=== PATIENT | male | born 1950 | race Caucasian/White ===

== ENCOUNTER 2022-05-14 02:11 | Day surgery (SDC) | payer MEDICARE, SELFPAY ==
[2022-05-11 14:17] VITALS: BMI 31.6
[2022-05-14] VITALS (38 sets, daily range): BP systolic 91–156; BP diastolic 50–96; PULSE 58–82; RESP 11–22; TEMP 36.6; O2SAT 94–99; BMI 30.6
[2022-05-14 07:46] LABS: INR 1.1; Prothrombin Time 13.4 Seconds (11.1-14.7)
[2022-05-14 07:47] LABS: Anion Gap 6 mmol/L (8-16); Blood Urea Nitrogen 16 mg/dL (9-20); Calcium 8.9 mg/dL (8.4-10.2); Carbon Dioxide 29 mmol/L (22-30); Chloride 105 mmol/L (98-107); Estimated CRCL calculation 77 ml/min; Estimated Glomerular Filt Rate > 60; Glucose 127 mg/dL (65-110); Potassium 3.6 mmol/L (3.4-5.0); Sodium 140 mmol/L (137-145)
[2022-05-14 07:48] LABS: Basophils Absolute Auto 0.1 K/mm3 (0.0-0.1); Basophils Percent Auto 0.9 % (0.2-1.2); Eosinophils Absolute Auto 0.1 K/mm3 (0-0.3); Eosinophils Percent Auto 1.8 % (0-4.4); Hematocrit 46.4 % (42.0-52.0); Hemoglobin 15.7 g/dL (14.0-18.0); Immature Granulocyte Absolute 0.03 K/mm3 (0.00-0.031); Immature Granulocyte Percent A 0.6 % (0-0.5); Lymphocytes Absolute Auto 1.46 K/mm3 (0.9-3.2); Lymphocytes Percent Auto 26.9 % (18.3-44.2); Mean Corpuscular HGB Conc 33.8 g/dl (32-36); Mean Corpuscular Hemoglobin 33.5 pg (26-34); Mean Corpuscular Volume 98.9 fl (80-100); Mean Platelet Volume 8.8 fl (7.4-10.4); Monocytes Absolute Auto 0.7 K/mm3 (0.1-0.6); Monocytes Percent Auto 13.1 % (2.6-8.5); Neutrophils Absolute Auto 3.1 K/mm3 (1.3-6.7); Neutrophils Percent Auto 56.7 % (45.5-73.1); Platelet Count Result 156 k/mm3 (150-375); Red Blood Count 4.69 M/mm3 (4.6-6.20); Red Cell Distribution Width 12.9 % (11.5-14.5); White Blood Count 5.4 K/mm3 (4.5-10.0)
--- NOTE | 2022-05-14 08:25 | WPDMODSED ---
Moderate Sedation Note-Pt Data Patient Data Diagnosis: Exertional dyspnea Abnormal nuclear stress test Present Complaint: Dyspnea Procedure to be performed/Plan: Left heart catheterization Allergies Allergy/AdvReac Type Severity Reaction Status Date / Time No Known Allergies Allergy Verified 05/14/22 07:20 Home Medications Medication Instructions Recorded Confirmed Type Adults Multivitamin 1 tablet PO DAILY 05/11/22 05/14/22 History Calcium + Vitamin D 1 cap PO DAILY 05/11/22 05/14/22 History amlodipine 5 mg tablet 5 mg PO DAILY 05/11/22 05/14/22 History atropine 1 % eye drops 3 drp EACH EYE PRN 05/11/22 05/14/22 History losartan 100 mg tablet 100 mg PO DAILY 05/11/22 05/14/22 History milk thistle 150 mg PO DAILY 05/11/22 05/14/22 History pantoprazole 40 mg tablet,delayed 40 mg PO DAILY 05/11/22 05/14/22 History release prednisolone acetate 1 % eye 1 drp RIGHT EYE BID 05/11/22 05/14/22 History drops,suspension gztyggb-nehl-tmqfo-oreg-capryl 500 mg PO DAILY 05/11/22 05/14/22 History Current Medications: Active Medications Sodium Chloride (Normal Saline Iv) 500 mls @ 100 mls/hr IV CONT .Q5H RUPINDER Sedation/Anesthesia: No previous sedation/anesthesia problems (including family history). [facility] Social History Social History Smoking status: Never smoker Drinks per week: 1 Alcohol use details: 1 glass of wine with dinner Living arrangements: with family Additional living arrangements comments: partner Flores Spiritual care concerns: No Mod Sed Physical Exam Physical Exam Pre Procedural Exam: Normal: Neck, Throat, Airway, Lungs, Heart Size, Heart Rate, Heart Rhythm, Neuro Exam and Extremities and Variation: Appearance (Overweight white male no apparent distress) Hours since solid foods: 12 Hours since liquid intake: 12 Mallampati Classification: class II Internal Medicine - PN: Obj Da Vital Signs Vital Signs: Vital Signs - 24 hr 05/14/22 07:33 Temperature 36.6 C Pulse Rate 64 Respiratory Rate 15 Blood Pressure 129/80 Pulse Oximetry 98 Oxygen Delivery Room Air Meds/Results Medications: Active Medications Generic Name Dose Route Start Last Admin Trade Name Freq PRN Reason Stop Dose Admin Sodium Chloride 500 mls @ 100 mls/hr 05/14/22 07:00 Normal Saline Iv IV CONT .Q5H COUNT INCLUDES THE [facility] Labs 05/14/22 07:26 05/14/22 07:26 Labs: Laboratory Results - last 24 hr 05/14/22 05/14/22 05/14/22 07:26 07:26 07:26 WBC 5.4 RBC 4.69 Hgb 15.7 Hct 46.4 MCV 98.9 MCH 33.5 MCHC 33.8 RDW 12.9 Plt Count 156 MPV 8.8 Immature Gran % (Auto) 0.6 H Neut % (Auto) 56.7 Lymph % (Auto) 26.9 [place] % (Auto) 13.1 H Eos % (Auto) 1.8 Baso % (Auto) 0.9 Lymph # (Auto) 1.46 [place] # (Auto) 0.7 H Eos # (Auto) 0.1 Baso # (Auto) 0.1 Abs Immat Gran (auto) 0.03 Absolute Neuts (auto) 3.1 Absolute Nucleated RBC 0.0 Nucleated RBC % 0.0 PT 13.4 INR 1.1 Sodium 140 Potassium 3.6 Chloride 105 Carbon Dioxide 29 Anion Gap 6 L BUN 16 Creatinine 0.90 Estim Creat Clear Calc 77 Estimated GFR > 60 Glucose 127 H Calcium 8.9 ASA Classification/Sedation ASA Classification/Sedation ASA Class: II Emergent: No Risks: Risks, benefits and alternatives explained and patient/family accepted plan for sedation. Patient re-evaluated immediately prior to sedation.
--- NOTE | 2022-05-14 09:39 | ECG_ITS ---
Measurements Intervals [place] Rate: 56 P: 48 [place]: 194 QRS: -6 QRSD: 98 T: 17 QT: 392 QTc: 382 Interpretive Statements SINUS BRADYCARDIA OTHERWISE NORMAL ECG NO PREVIOUS ECG AVAILABLE FOR COMPARISON Electronically Signed On 05-14-2022 12:30:03 [employer] by Mark Guerrier M.D.
--- NOTE | 2022-05-14 09:43 | WPDCARDPROC ---
Cardiac Cath Procedure Note Date of procedure:: 05/14/22 Performing physician:: Blu Gamboa MD Indication:: exertional dyspnea abnormal nuclear stress test hypertension Brief clinical history:: this is a 72-year-old patient reporting the recent onset of exertional shortness of breath. A nuclear stress test was abnormal suggesting some inferior ischemia angiography recommended for this reason. No previous history of CAD. Procedure Procedure performed:: Left ventriculogram coronary angiogram PCI(REYNOLD) to mid RCA Sedation/Medication given:: fentanyl 50 mg Versed 2 mg case start time 8:53 a.m. case end time 9:34 a.m. sedation provided by Alena Munguia RN, trained observer Access site:: right femoral artery Estimated blood loss:: 30 cc Procedure note:: patient was brought to the cardiac catheterization lab the right femoral triangle was prepared and draped in the normal fashion. Was provided with 1% lidocaine infiltrated locally. Using the modified Seldinger technique the femoral artery was punctured and a 5 Swazi vascular sheath was placed. I then used a 5 Swazi angled pigtail catheter to measure left-sided hemodynamics and to perform a left ventriculogram in the CARDENAS projection. After this the 5 Swazi FL4 catheter was advanced to the aortic root for would not satisfactorily engage the left the left main. I engaged the left main using a 5 Swazi FL 3.5 catheter. After this the right coronary was engaged and injected using a standard 5 Swazi JR4 catheter. The cine angiograms were reviewed and PCI of the mid right coronary artery was then recommended and carried out as detailed below. Prior to PCI 5 Swazi sheath was changed over a guidewire for 6 Swazi 25 Cm sheath. The patient was then anticoagulated with bolus and infusion of Angiomax and he received aspirin and 600 mg of clopidogrel prior to PCI. following PCI the sheath was sutured in position the patient was taken to the holding area in stable condition there was no significant groin hematoma upon leaving the medical lab technologist and there were no apparent procedural complications. Findings:: Hemodynamics: Central aortic pressure is 144 over 74 left ventricle 144/5 end-diastolic pressure 22. There was no systolic gradient noted upon pullback across the aortic valve. Left ventricle: The LV is normal in size all segments contract in a vigorous hyperdynamic fashion. The patient did have a run of ventricular tachycardia during the LV injection. Ejection fraction appears to be hyperdynamic at 75%. The left main coronary artery is medium in caliber and nicely patent. The left anterior descending is a moderate caliber artery extending down to around the apex. There is calcification seen in the proximal 3rd of the LAD. There is mild very mild loop little narrowing but no more than 20-30% stenosis seen in the proximal LAD. The circumflex is a moderate caliber artery giving rise to the marginal branches. The circumflex proximally is somewhat calcified but also free of significant disease. After the 2nd obtuse marginal branch there is a 70% stenosis at the origin of the posterior terminal branch of the circumflex. There is BELEN 3 flow in this area. The right coronary artery is medium in caliber and dominant to the posterior circulation. There is 99% stenosis in the midportion of the RCA between the 2nd and 3rd portion of the artery. There is BELEN 2 flow distal to this and there is also ymia-pb-[id number] collateral filling seen from the left coronary on the previous injections. There is pnni-hw-gjgqyctn diffuse disease distal to this high-grade lesion down to just before the bifurcation. Intervention: The right coronary artery was engaged using a 6 Swazi JR4 catheter. I used a 0.014 bioinformatics support specialist 150 guidewire to traverse the very high-grade this stenosis was advanced into the PL system. Following this the lesion was pre-dilated using a 2.5 x 20 mm Neff
[2022-05-14] MEDS: SODIUM CHLORIDE 0.9% IV 1,000 ML 125 ML IV CONT (12:26)
== END 2022-05-14 20:00 | disposition home or self-care (01) ==
PROVIDERS: PCP Family Medicine; Visit Provider Specialist
PROC: 4A023N7 Measurement of Cardiac Sampling and Pressure, Left Heart, Percutaneous Approach (ICD-10-PCS; CPT 93452; principal; 2022-05-14 08:30)
DX: I25.10 Atherosclerotic heart disease of native coronary artery without angina pectoris (principal); R94.39 Abnormal result of other cardiovascular function study; R06.09 Other forms of dyspnea; I10 Essential (primary) hypertension
CPT/HCPCS: 36415; 80048; 85025; 85610; 93005; 93458; A9270; C1725; C1769; C1874; C1887; C1894; C9600; J0583; J1644; J2250; J3010; J7030; J7040

== ENCOUNTER 2022-11-04 15:40 | Observation (INO) | payer MEDICARE, SELFPAY ==
--- NOTE | ~2022-11-04 | CT_ITS ---
EXAMINATION: CT abdomen pelvis w con DATE: 11/04/2022 19:10 INDICATION: Diffuse abdominal pain. Nausea. Fevers. Myalgias. TECHNIQUE: Computed tomography (CT) of the abdomen and pelvis was performed with 100 CC Omnipaque 350 intravenous contrast. Automated exposure control and iterative reconstruction technique were employe d. Exam dose: 1094.82 mGy-cm total exam DLP. COMPARISON: None. FINDINGS: Minimal discoid atelectasis at the lung bases. Normal heart size. No pericardial or pleural effusion. The liver, gallbladder, bile ducts, spleen, pancreas, pancreatic duct, and adrenal glands are unremar kable. Approximately 2.2 x 2.7 cm ill-defined area of diminished enhancement at the posterior lateral aspect of the upper pole the right kidney with adjacent perinephric mild fluid collection and fat stranding . Differential diagnosis includes pyelonephritis. Differential diagnosis includes neoplasm, less like ly infarct. There are 10 mm and 6 mm probable left renal cysts. There is extensive abdominal aortic as well as iliac and femoral artery calcification. No abdominal a ortic aneurysm. No intraperitoneal or retroperitoneal or pelvic mass lesion or adenopathy or ascites. There is prostate enlargement and calcification. Normal appendix. There occasional fluid containing small bowel segments with air-fluid levels but no abnormal dilatati on of small or large bowel to suggest obstruction. Small bilateral fat-containing inguinal hernias. Small fat-containing umbilical hernia Degenerative changes of the thoracic and lumbar spine including multilevel degenerative disc disease of the lumbar spine. IMPRESSION: Nonspecific diminished attenuation of the posterior superior aspect of the right kidney with adjacent mild perinephric fluid and fat stranding. Findings are most suggestive of pyelonephriti s. Less likely considerations in the differential diagnosis include neoplasm, infarct Small probable left renal cysts Reviewed, dictated and finalized at [facility]. Reviewed, dictated and finalized at [facility]. IMPRESSION: Nonspecific diminished attenuation of the posterior superior aspec t of the right kidney with adjacent mild perinephric fluid and fat stranding. F indings are most suggestive of pyelonephritis. Less likely considerations in th e differential diagnosis include neoplasm, infarct Small probable left renal cysts
--- NOTE | ~2022-11-04 | XR_ITS ---
XR chest 2V DATE: 11/04/2022 17:44 INDICATION: Fever, cough, myalgia TECHNIQUE: PA and lateral views COMPARISON: None FINDINGS: Normal heart size. Aortic arch calcification. No hilar or mediastinal enlargement. No pulmonary infiltrate or consolidation, pleural effusion or pulmonary vascular congestion or pneumo thorax is detected. Probable small calcified pulmonary granuloma, lateral left lower lung. Degenerative spurring and mild dextro scoliosis of the thoracic spine. IMPRESSION: No active cardiopulmonary disease Aortic atherosclerosis Reviewed, dictated and finalized at [facility].
[2022-11-04 15:43] VITALS: BP 149/80; PULSE 103; RESP 16; TEMP 38.4; O2SAT 100
[2022-11-04 16:03] LABS: Basophils Percent Auto 0.3 % (0.2-1.2); Hematocrit 41.9 % (42.0-52.0); Hemoglobin 14.4 g/dL (14.0-18.0); Immature Granulocyte Absolute 0.06 K/mm3 (0.00-0.031); Immature Granulocyte Percent A 0.5 % (0-0.5); Lymphocytes Percent Auto 7.3 % (18.3-44.2); Mean Corpuscular HGB Conc 34.4 g/dl (32-36); Mean Corpuscular Hemoglobin 33.3 pg (26-34); Mean Corpuscular Volume 96.8 fl (80-100); Mean Platelet Volume 8.5 fl (7.4-10.4); Monocytes Absolute Auto 1.1 K/mm3 (0.1-0.6); Monocytes Percent Auto 9.9 % (2.6-8.5); Platelet Count Result 108 k/mm3 (150-375); Red Blood Count 4.33 M/mm3 (4.6-6.20); Red Cell Distribution Width 13.2 % (11.5-14.5)
[2022-11-04 16:09] LABS: Appearance Urine Clear (Clear); Bacteria Urine None Seen /hpf; Bilirubin Urine Negative (Negative); Blood Urine 2+ (Negative); Color Urine Yellow (Yellow); Glucose Urine UA Negative (Negative); Ketones Urine Trace mg/dL (Negative); Leukocyte Esterase Ur 1+ LEU/UL (Negative); Nitrate Urine Negative (Negative); Non Pathogenic Casts 0-2; Protein Urine 2+ mg/dL (Negative); Specific Grav Ur 1.021 (1.001-1.035); Squamous Epithelial Cell Urine None seen /hpf (Few); WBC Urine 21-50 /hpf
[2022-11-04 16:10] LABS: INR 1.1; Partial Thromboplastin Time 29.4 SECONDS (22.3-36.8); Prothrombin Time 14.2 Seconds (11.1-14.7)
[2022-11-04 16:17] LABS: Alanine Aminotransferase 27 U/L (6-50); Albumin Level 4.4 g/dL (3.5-5.1); Alkaline Phosphatase 79 U/L (38-126); Anion Gap 8 mmol/L (8-16); Aspartate Amino Transferase 27 U/L (17-59); Bilirubin,Total 1.8 mg/dL (0.2-1.3); Blood Urea Nitrogen 15 mg/dL (9-20); Calcium 8.9 mg/dL (8.4-10.2); Carbon Dioxide 24 mmol/L (22-30); Chloride 103 mmol/L (98-107); Estimated CRCL calculation 87 ml/min; Estimated Glomerular Filt Rate > 60; Glucose 127 mg/dL (65-110); Lipase 42 U/L (23-300); Potassium 3.5 mmol/L (3.4-5.0); Sodium 135 mmol/L (137-145)
[2022-11-04 16:18] LABS: Add Urine Microscopic? YES
[2022-11-04 16:38] LABS: Influenza A QL RT-PCR Negative (Negative); Influenza B QL RT-PCR Negative (Negative); RSV RNA, RT-PCR Negative (Negative); SARS-CoV-2 RNA PCR Negative (Negative)
--- NOTE | 2022-11-04 17:20 | ED.FEVER ---
HPI - Fever General Chief Complaint: Fever Stated Complaint: fever Time Seen by Provider: 11/04/22 17:19 Source: patient Mode of arrival: ambulatory Limitations: no limitations History of Present Illness HPI Narrative: Patient is a 72 y/o male who presents to the ED with c/o fever and abdominal pain. Patient reports last night he suddenly began feeling unwell with diffuse body myalgias, particularly in his hips and lower back. He states he could not get comfortable and had trouble sleeping due to the pain in his body and joints. He also reported having diffuse abdominal pain at that time associated with nausea, but no vomiting. He developed a mild fever last night and a more persistent fever today. He has been taking Tylenol, last took a dose about 4 to 5 hours ago. He states he has been coughing when he feels nauseous, but otherwise denies significant cough. Denies chest pain or shortness of breath. Denies congestion, rhinorrhea, sore throat. Denies diarrhea, constipation. Last bowel movement was yesterday normal. Denies any urinary symptoms. Related Data Home Medications Medication Instructions Recorded Confirmed Adults Multivitamin 1 tablet PO DAILY 05/11/22 11/04/22 Calcium + Vitamin D 1 cap PO DAILY 05/11/22 11/04/22 amlodipine 5 mg tablet 5 mg PO DAILY 05/11/22 11/04/22 losartan 100 mg tablet 100 mg PO DAILY 05/11/22 11/04/22 milk thistle 150 mg PO DAILY 05/11/22 11/04/22 prednisolone acetate 1 % eye 1 drp RIGHT EYE BID 05/11/22 11/04/22 drops,suspension Allergies Allergy/AdvReac Type Severity Reaction Status Date / Time No Known Allergies Allergy Verified 05/14/22 07:20 Review of Systems Review of Systems: CONSTITUTIONAL: See HPI. ENT: Denies rhinorrhea, congestion, sore throat. CARDIOVASCULAR: Denies chest pain. RESPIRATORY: See HPI. GASTROINTESTINAL: See HPI. GENITOURINARY: Denies dysuria or hematuria. SKIN: Denies rash or itching. MUSCULOSKELETAL: See HPI. NEUROLOGIC: Denies headache, numbness, or weakness. All systems reviewed & are unremarkable except as noted in HPI and below PMFSH Past Medical History Medical History Blind right eye Coronary artery disease GERD (gastroesophageal reflux disease) HLD (hyperlipidemia) HTN (hypertension) Retinal detachment, right Surgical History Surgical History History of bilateral inguinal hernia repair History of heart artery stent (04/2022) 99% stenosis between the 2nd and 3rd portions RCA and 70% stenosis in the circumflex posterior branch just after the origin of the obtuse marginal branch of the right coronary artery with a 26 mm Orsiro History of tonsillectomy and adenoidectomy As a child Family History Family History (Updated 11/05/22 @ 00:42 by Arabella Sun DO) Father , at age 80 Pancreatic cancer, Onset Age: 65 COPD (chronic obstructive pulmonary disease) Mother Dementia COPD (chronic obstructive pulmonary disease) Sibling COPD (chronic obstructive pulmonary disease) Chronic kidney disease Social History Social History Social History: 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 He lives with his long-term girlfriend. He drinks 3-4 alcoholic beverages a day. He denies illicit substance use. Code status: Full code Smoking status: Never smoker Drinks per week: 24 Alcohol use details: 3-4 alcoholic beverages a day Substance use: never Substance use type: does not use Lack of Transportation: No Lack of Food: Never True Current Housing: I Have Housing Concerned About Future Housing: No Difficulty Paying Gas/Electric Bills: No Difficulty Paying for Meds: No Currently Unemployed: No Education: Associate Degree Difficulty w/ Childcare or Famil
[2022-11-04 18:15] VITALS: BP 132/62; PULSE 83; RESP 18; O2SAT 98
[2022-11-04] MEDS: ONDANSETRON INJ 4 MG/2 ML VIAL IV PUSH (18:18)
[2022-11-04] MEDS: SODIUM CHLORIDE 0.9% IV 1,000 ML 999 ML IV CONT ×2 (18:18→21:18)
[2022-11-04] MEDS: ACETAMINOPHEN 500 MG TABLET 1000 MG PO (18:18)
[2022-11-04 19:17] VITALS: BP 121/65; PULSE 79; RESP 18; O2SAT 99
[2022-11-04 21:19] VITALS: BP 103/55; PULSE 71; RESP 15; TEMP 37; O2SAT 100
--- NOTE | 2022-11-04 21:37 | PM.IMHP ---
H&P: HPI History of Present Illness Date/Time: 11/04/22 21:37 Chief Complaint: Fever, abdominal pain and body aches Narrative: 72-year-old male with a past medical history of coronary artery disease, GERD, essential hypertension and hyperlipidemia who presented to the ER from home via private vehicle with fever abdominal pain and body aches. Source of information is review of past medical records, ER report and patient report. Patient is a good historian. The patient tells me that he started having symptoms on the night of the . 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 All the sudden he began having generalized body aches and arthralgias. Mostly in his hips and knees. He felt somewhat fatigued. When he got home he started having sweats and chills. He was nauseated and having some dry heaves. He denies any recent ill contacts. He stated that he felt similar to when he had COVID a couple of years ago. He checked his temperature at home and it was as high as 104?. He denies any cough, congestion, headache, visual changes, diarrhea, abdominal pain, recent ill contacts or recent travel. He denies any dysuria or hematuria. He reports that he feels like he has been urinating a lot lately. They denies any increased urgency or dysuria. He has not had any urinary incontinence. He denies flank pain. In the ER CT of the abdomen pelvis was performed which demonstrated a right-sided pyelonephritis. His urine was consistent with UTI. He denies any prior history of UTI. He met sepsis criteria with tachycardia fever and leukocytosis. He received 2 L of IV fluid bolus, 1 g of p.o. Tylenol and Rocephin. His tachycardia improved. He has not had any further nausea or vomiting. Review of Systems Review of Systems: 12 systems were reviewed with pertinent positives and negatives per HPI. Except as documented in the HPI, all other systems were reviewed and are negative. [facility] Past Medical History Medical History (Updated 11/05/22 @ 00:35 by Arabella Sun DO) Blind right eye Coronary artery disease GERD (gastroesophageal reflux disease) HLD (hyperlipidemia) HTN (hypertension) Retinal detachment, right Surgical History Surgical History (Updated 11/05/22 @ 00:30 by Arabella Sun DO) History of bilateral inguinal hernia repair History of heart artery stent (04/2022) 99% stenosis between the 2nd and 3rd portions RCA and 70% stenosis in the circumflex posterior branch just after the origin of the obtuse marginal branch of the right coronary artery with a 26 mm Orsiro History of tonsillectomy and adenoidectomy As a child Family History Family History (Updated 11/05/22 @ 00:42 by Arabella Sun DO) Father , at age 80 Pancreatic cancer, Onset Age: 65 COPD (chronic obstructive pulmonary disease) Mother Dementia COPD (chronic obstructive pulmonary disease) Sibling COPD (chronic obstructive pulmonary disease) Chronic kidney disease Social History Social History (Updated 11/05/22 @ 00:43 by Arabella Sun DO) Social History: 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 He lives with his long-term girlfriend. He drinks 3-4 alcoholic beverages a day. He denies illicit substance use. Code status: Full code Smoking status: Never smoker Drinks per week: 24 Alcohol use details: 3-4 alcoholic beverages a day Substance use: never Substance use type: does not use Lack of Transportation: No Lack of Food: Never True Current Housing: I Have Housing Concerned About Future Housing: No Difficulty Paying Gas/Electric Bills: No Difficulty Paying for Meds: No Currently Unemployed: No Education: Associate Degree Difficulty w/ Childcare or Family Care: No Living arrangements: with family Additional living arrangements comments: partner Flores Gender identity (if verbalized by the patient): Male Sexual Orientation
[2022-11-04 22:00] VITALS: BP 121/60; PULSE 66; RESP 14; TEMP 36.1; O2SAT 100
[2022-11-04] MEDS: SODIUM CHLORIDE 0.9% IV 1,000 ML 100 ML IV CONT (22:32)
[2022-11-04 22:45] VITALS: BMI 31.3
[2022-11-04 23:26] LABS: Lactic Acid Reflex 1.9 mmol/L (0.7-2.0)
[2022-11-05] MEDS: diphenhydrAMINE HCl CAP 25 MG CAPSULE 50 MG PO (00:33)
[2022-11-05 00:37] VITALS: TEMP 37.7
[2022-11-05] MEDS: ACETAMINOPHEN 325 MG TABLET 650 MG PO ×2 (00:37→15:39)
[2022-11-05 06:00] VITALS: BP 152/65; PULSE 95; RESP 16; TEMP 37.2; O2SAT 90
[2022-11-05 06:33] LABS: Basophils Percent Auto 0.4 % (0.2-1.2); Hematocrit 37.6 % (42.0-52.0); Hemoglobin 12.4 g/dL (14.0-18.0); Immature Granulocyte Absolute 0.05 K/mm3 (0.00-0.031); Immature Granulocyte Percent A 0.7 % (0-0.5); Immature Platelet Fraction Pct 1.5 % (0.9-11.2); Lymphocytes Percent Auto 5.8 % (18.3-44.2); Mean Corpuscular Hemoglobin 32.6 pg (26-34); Mean Corpuscular Volume 98.9 fl (80-100); Mean Platelet Volume 8.7 fl (7.4-10.4); Monocytes Absolute Auto 0.6 K/mm3 (0.1-0.6); Monocytes Percent Auto 9.2 % (2.6-8.5); Neutrophils Absolute Auto 5.7 K/mm3 (1.3-6.7); Neutrophils Percent Auto 83.9 % (45.5-73.1); Platelet Count Result 121 k/mm3 (150-375); Red Cell Distribution Width 13.5 % (11.5-14.5); White Blood Count 6.8 K/mm3 (4.5-10.0)
[2022-11-05 06:37] LABS: Anion Gap 5 mmol/L (8-16); Blood Urea Nitrogen 13 mg/dL (9-20); Carbon Dioxide 25 mmol/L (22-30); Chloride 104 mmol/L (98-107); Estimated CRCL calculation 87 ml/min; Estimated Glomerular Filt Rate > 60; Glucose 133 mg/dL (65-110); Potassium 3.4 mmol/L (3.4-5.0); Sodium 134 mmol/L (137-145)
[2022-11-05] MEDS: prednisoLONE ACETATE 1% OPHTH 5 ML 1 DROP RIGHT EYE ×2 (09:14→20:23)
[2022-11-05] MEDS: CLOPIDOGREL BISULFATE 75 MG TABLET PO (09:15)
[2022-11-05] MEDS: amLODIPine BESYLATE 5 MG TABLET PO (09:15)
[2022-11-05 09:16] VITALS: PULSE 84
[2022-11-05] MEDS: ROSUVASTATIN 10 MG TABLET 20 MG PO (09:16)
[2022-11-05] MEDS: METOPROLOL SUCCINATE EXT REL 25 MG TABCR PO (09:16)
[2022-11-05] MEDS: LOSARTAN POTASSIUM 100 MG TABLET PO (09:16)
[2022-11-05] MEDS: ENOXAPARIN 40 MG/0.4 ML SYRINGE SUB-Q (09:17)
[2022-11-05] MEDS: ASPIRIN 81 MG CHEWABLE TABLET PO (09:21)
--- NOTE | 2022-11-05 12:10 | PM.IMPN ---
Progress Note: A&P Assessment and Plan (1) Sepsis: Qualifiers: Sepsis acute organ dysfunction status: without acute organ dysfunction Sepsis type: sepsis due to unspecified organism Qualified Code(s): A41.9 - Sepsis, unspecified organism Code(s): A41.9 - Sepsis, unspecified organism Status: Acute Assessment and Plan: Patient met sepsis criteria on admission with fever (T-max 101.1?), tachycardia and leukocytosis in the setting of right sided pyelonephritis. Blood cultures have been obtained in the ER and are pending. Urine culture has been obtained. Continue empiric antibiotic therapy with Rocephin. Patient received adequate fluid rehydration with 2 L normal saline in the ER with resolution of tachycardia. Remains afebrile today. Leukocytosis resolved, WBC 6.8.Will continue Tylenol and ibuprofen as needed. Monitor urine output closely. (2) Pyelonephritis of right kidney: Code(s): N12 - Tubulo-interstitial nephritis, not specified as acute or chronic Status: Acute Assessment and Plan: CT findings with perinephric fat stranding of right kidney. UA grossly abnormal. Urine cultures pending. Empiric antibiotic therapy as discussed above. Await culture results and tailor accordingly (3) HTN (hypertension): Code(s): I10 - Essential (primary) hypertension Status: Acute Assessment and Plan: Blood pressures are stable at this time. Continue home amlodipine, losartan, metoprolol Subjective Date/time seen: 11/05/22 12:10 Interval history: Date of service: 11/05/2022 Blu Raines is a 72-year-old male with history of hypertension, hyperlipidemia, GERD, CAD, and retinal detachment of the right eye who is seen in follow-up for pyelonephritis. Patient is feeling improved today. Flank pain much improved, currently rated 2/10. He did endorse chills overnight but no fevers and feels better today. He denies back pain. No nausea or vomiting. Denies dysuria, hematuria, urgency, frequency. Tolerating his diet. Does complain of feeling sleepy. No shortness of breath, cough, chest pain. Review of Systems Review of Systems: All systems reviewed & are unremarkable except as noted in HPI and below Exam Narrative: General: Well-nourished, well-appearing 72-year-old male, sitting up in bed, comfortable, NARD Neuro: awake, alert and oriented x4, speech clear, no focal neuro deficits noted HEENMT: normocephalic, atraumatic, EOMI, sclerae anicteric Respiratory: clear to auscultation bilaterally, nonlabored breathing Cardio: regular rate, regular rhythm with S1-S2 Abdomen: nondistended, normoactive bowel sounds, soft, nontender to palpation : No CVA tenderness Extremities: no edema, erythema, or tenderness to palpation Skin: no rashes or lesions, warm and dry Psych: appropriate mood and affect, judgment and insight intact Objective Data Vital Signs Vital Signs: Vital Signs - 24 hr 11/04/22 15:43 11/04/22 18:15 11/04/22 19:17 Temperature 101.1 F H Pulse Rate 103 H 83 79 Respiratory Rate 16 18 18 Blood Pressure 149/80 H 132/62 121/65 Pulse Oximetry 100 98 99 Oxygen Delivery Room Air 11/04/22 21:19 11/05/22 00:37 11/04/22 22:00 Temperature 98.6 F 99.9 F H 96.9 F L Pulse Rate 71 66 Respiratory Rate 15 14 Blood Pressure 103/55 L 121/60 Pulse Oximetry 100 100 Oxygen Delivery 11/05/22 06:00 11/05/22 09:16 Temperature 98.9 F Pulse Rate 95 84 Respiratory Rate 16 Blood Pressure 152/65 H Pulse Oximetry 90 Oxygen Delivery Intake/Output Intake/Output: Intake & Output 11/02/22 11/03/22 11/04/22 11/05/22 23:59 23:59 23:59 23:59 Intake Total 2049 640 Balance 2049 640 Meds/Results Medications: Active Medications Generic Name Dose Route Start Last Admin Trade Name Nevilleq PRN Reason Stop Dose Admin Acetaminophen 650 mg 11/04/22 21:22 11/05/22 00:37 Acetaminophen 325 Mg Tablet PO 650
[2022-11-05 14:00] VITALS: BP 131/52; PULSE 82; RESP 18; TEMP 37.3; O2SAT 93
[2022-11-05] MEDS: SODIUM CHLORIDE 0.9% IV 1,000 ML 100 ML IV CONT (17:54)
--- NOTE | 2022-11-05 18:29 | PC.NURSE ---
Pt is A&O4 male that has reported no pain pertaining to the original diagnosis. Pt had headache that required tylenol to treat. Pt has expressed no needs and reported no nausea or vomiting. Pt ambulates stand by to the bathroom. Pt tolerates well. Will continue to monitor pt.
[2022-11-05 21:45] VITALS: BP 120/61; PULSE 69; RESP 18; TEMP 36.8; O2SAT 95
[2022-11-06] MEDS: SODIUM CHLORIDE 0.9% IV 1,000 ML 100 ML IV CONT (04:49)
[2022-11-06 06:00] VITALS: BP 120/65; PULSE 70; RESP 18; TEMP 37.1; O2SAT 95
[2022-11-06 06:31] LABS: Hematocrit 36.5 % (42.0-52.0); Immature Platelet Fraction Pct 2.2 % (0.9-11.2); Mean Corpuscular HGB Conc 32.9 g/dl (32-36); Mean Corpuscular Hemoglobin 32.7 pg (26-34); Mean Corpuscular Volume 99.5 fl (80-100); Mean Platelet Volume 8.5 fl (7.4-10.4); Platelet Count Result 116 k/mm3 (150-375); Red Blood Count 3.67 M/mm3 (4.6-6.20); Red Cell Distribution Width 13.6 % (11.5-14.5); White Blood Count 5.4 K/mm3 (4.5-10.0)
[2022-11-06 06:59] LABS: Anion Gap 8 mmol/L (8-16); Blood Urea Nitrogen 11 mg/dL (9-20); Calcium 7.7 mg/dL (8.4-10.2); Carbon Dioxide 23 mmol/L (22-30); Chloride 104 mmol/L (98-107); Estimated CRCL calculation 98 ml/min; Estimated Glomerular Filt Rate > 60; Glucose 108 mg/dL (65-110); Potassium 3.2 mmol/L (3.4-5.0); Sodium 135 mmol/L (137-145)
[2022-11-06 08:50] VITALS: PULSE 80
[2022-11-06] MEDS: LOSARTAN POTASSIUM 100 MG TABLET PO (08:50)
[2022-11-06] MEDS: amLODIPine BESYLATE 5 MG TABLET PO (08:50)
[2022-11-06] MEDS: CLOPIDOGREL BISULFATE 75 MG TABLET PO (08:50)
[2022-11-06] MEDS: ASPIRIN 81 MG CHEWABLE TABLET PO (08:50)
[2022-11-06] MEDS: ROSUVASTATIN 10 MG TABLET 20 MG PO (08:50)
[2022-11-06] MEDS: METOPROLOL SUCCINATE EXT REL 25 MG TABCR PO (08:50)
[2022-11-06] MEDS: prednisoLONE ACETATE 1% OPHTH 5 ML 1 DROP RIGHT EYE (08:51)
[2022-11-06] MEDS: ENOXAPARIN 40 MG/0.4 ML SYRINGE SUB-Q (08:51)
[2022-11-06] MEDS: POTASSIUM CHLORIDE 20 MEQ PACKET (FOR LIQUID) PO (09:31)
[2022-11-06 14:00] VITALS: BP 109/61; PULSE 66; RESP 18; TEMP 36.6; O2SAT 97
--- NOTE | 2022-11-06 14:05 | PM.DS ---
DS: Admitting Diagnosis Discharge Date 11/06/2022 Admitting Diagnosis Pyelonephritis DS: Discharge Diagnosis Discharge Diagnosis (1) Sepsis: Qualifiers: Sepsis acute organ dysfunction status: without acute organ dysfunction Sepsis type: sepsis due to unspecified organism Qualified Code(s): A41.9 - Sepsis, unspecified organism Code(s): A41.9 - Sepsis, unspecified organism Status: Acute Assessment and Plan: Patient met sepsis criteria on admission with fever (T-max 101.1?), tachycardia and leukocytosis in the setting of right sided pyelonephritis. Sepsis resolved. Patient remained afebrile >24 hours. Leukocytosis and tachycardia resolved. Blood cultures negative to date, final cultures will be monitored. Patient was adequately rehydrated with IV fluids. Urine output monitored and was appropriate (2) Pyelonephritis of right kidney: Code(s): N12 - Tubulo-interstitial nephritis, not specified as acute or chronic Status: Acute Assessment and Plan: CT findings with perinephric fat stranding of right kidney. UA grossly abnormal. Urine culture with growth of >100k E coli, sensitive to Rocephin which patient received during admission. Will continue p.o. cefdinir as an outpatient to complete a 10 day course of antibiotics. Follow-up with PCP for continued monitoring and to ensure resolution of infection (3) HTN (hypertension): Code(s): I10 - Essential (primary) hypertension Status: Acute Assessment and Plan: Blood pressures remained stable during admission. Continue home amlodipine, losartan, metoprolol (4) Hypokalemia: Code(s): E87.6 - Hypokalemia Status: Acute Assessment and Plan: Potassium slightly decreased at 3.2 and was supplemented, likely due to poor p.o. intake. Anticipate complete resolution as p.o. intake improved with treatment of infection. DS: Summary Hospital Course Hospital Course: Blu Raines is a 72-year-old male with history of hypertension, hyperlipidemia, GERD, CAD, and retinal detachment of the right eye who presented to the ED on 11/04/2022 with complaints of diffuse body aches, worsened flank and. On presentation to the ED, he was mildly tachycardic, temp 101.1?, WBC 11.0 UA grossly abnormal, CXR acute cardiopulmonary disease, CT of the/pelvis with perinephric fat stranding of the right kidney. He was admitted to the hospitalist service for further evaluation and management. Please see above for further details. He was treated with IV Rocephin. Sepsis resolved. Patient will continue p.o. cefdinir as an outpatient to complete a 10 day course based on culture results and will follow-up with his PCP in 1 week for continued monitoring. Patient was feeling significantly improved, back to his baseline state of health. [place] comfortable with plans for discharge home. Discussed worrisome signs and symptoms for which to return and he was educated on his medications. Discharged in hemodynamically stable condition on 11/06/2022. Time Spent with Patient Time attestation: Total time spent providing and/or coordinating discharge services: 45 minutes Time spent: Greater than 30 minutes Exam Narrative: General: Well-nourished, well-appearing 72-year-old male, sitting up in bed, comfortable, NARD Neuro: awake, alert and oriented x4, speech clear, no focal neuro deficits noted HEENMT: normocephalic, atraumatic, EOMI, sclerae anicteric Respiratory: clear to auscultation bilaterally, nonlabored breathing Cardio: regular rate, regular rhythm with S1-S2 Abdomen: nondistended, normoactive bowel sounds, soft, nontender to palpation : No CVA tenderness Extremities: no edema, erythema, or tenderness to palpation Skin: no rashes or lesions, warm and dry Psych: appropriate mood and affect, judgment and insight intact DS: Data Data Completed and Pending Labs on day of discharge: Labs from last 24 hours 0
--- NOTE | 2022-11-06 15:03 | PC.NURSE ---
Pt is A&O4 male. Pt has reported no pain and expresses no needs at this time. Pt given antibiotics early so that pt could discharge today and start PO antibiotics tomorrow. Pt discharged home with . Pt refused wheel chair to car. Pt IV removed intact. Pt educated on discharge orders. Pt was monitored for any changes in status while here.
== END 2022-11-06 15:00 | disposition home or self-care (01) ==
LOC: ANHED 17:31 → ANH3MEDSUR 21:05
PROVIDERS: Emergency Medicine; Admitting Provider Internal Medicine; Emergency Provider Physician Assistant; PCP Family Medicine; Visit Provider Physician Assistant
DX: A41.9 Sepsis, unspecified organism (principal); N12 Tubulo-interstitial nephritis, not specified as acute or chronic; B96.20 Unspecified Escherichia coli [E. coli] as the cause of diseases classified elsewhere; I10 Essential (primary) hypertension; E87.6 Hypokalemia; I25.10 Atherosclerotic heart disease of native coronary artery without angina pectoris; Z95.5 Presence of coronary angioplasty implant and graft; E78.5 Hyperlipidemia, unspecified; Z20.822 Contact with and (suspected) exposure to COVID-19; K21.9 Gastro-esophageal reflux disease without esophagitis; H33.21 Serous retinal detachment, right eye; H54.61 Unqualified visual loss, right eye, normal vision left eye; I70.0 Atherosclerosis of aorta; N28.1 Cyst of kidney, acquired; E80.7 Disorder of bilirubin metabolism, unspecified; E66.9 Obesity, unspecified; Z68.31 Body mass index [BMI] 31.0-31.9, adult; F10.90 Alcohol use, unspecified, uncomplicated; Z79.52 Long term (current) use of systemic steroids; Z79.01 Long term (current) use of anticoagulants; Z79.899 Other long term (current) drug therapy
CPT/HCPCS: 36415; 71046; 74177; 80048; 80053; 81001; 83605; 83690; 85025; 85027; 85055; 85610; 85730; 87040; 87077; 87086; 87186; 87637; 96361; 96365; 96372; 96375; 96376; 99285; A9270; G0378; J0696; J1650; J2405; J7030; Q9967

== ENCOUNTER 2024-02-10 10:11 | Outpatient (CLI) | payer MEDICARE, SELFPAY ==
--- NOTE | ~2024-02-10 | XR_ITS ---
Right Knee Technique: AP, lateral, and sunrise views were obtained. Clinical History: Osteoarthritis Findings: No fracture or dislocation is seen. There is advanced tricompartment osteoarthritis, osteop hyte formation and narrowing of the medial lateral compartments. Soft tissues are unremarkable. No jailene int effusion is seen. Impression: Advanced tricompartmental osteoarthritis. Reviewed, dictated and finalized at location . Impression: Advanced tricompartmental osteoarthritis.
--- NOTE | ~2024-02-10 | XR_ITS ---
Left Knee Technique: AP, lateral, and sunrise views were obtained. Clinical History: Osteoarthritis Findings: No fracture or dislocation is seen. There is advanced tricompartment osteoarthritis, with n arrowing of the medial compartment. Soft tissues are unremarkable. No joint effusion is seen. Impression: Advanced tricompartmental osteoarthritis. Reviewed, dictated and finalized at location M. Impression: Advanced tricompartmental osteoarthritis.
== END 2024-02-10 10:12 | disposition home or self-care (01) ==
LOC: ANHIMG 10:15
PROVIDERS: PCP Family Medicine; Visit Provider Orthopaedic Surgery
DX: M17.0 Bilateral primary osteoarthritis of knee (principal)
CPT/HCPCS: 73564

== ENCOUNTER 2024-02-28 09:30 | Outpatient (CLI) | payer MEDICARE, SELFPAY ==
--- NOTE | 2024-02-28 09:47 | ECG_ITS ---
Test Date: 2024-02-28 10:01:40 Measurements Intervals [place]in Rate: 60 P: 31 ME: 159 QRS: 5 QRSD: 95 T: 31 QT: 372 QTc: 372 Interpretive Statements SINUS RHYTHM LOW QRS VOLTAGE IN PRECORDIAL LEADS [QRS DEFLECTION < 1.0 mV IN CHEST LEADS] WARNING: DATA QUALITY MAY AFFECT INTERPRETATION No previous ECG available for comparison Electronically Signed On 02-28-2024 10:43:03 CDT by Alphonse Baltazar M.D.
[2024-02-28 11:39] LABS: Hemoglobin 14.3 g/dL (14.0-18.0)
[2024-02-28 12:13] LABS: Albumin Level 4.8 g/dL (3.5-5.1); Estimated Glomerular Filt Rate > 60; Glucose 96 mg/dL (65-110)
== END 2024-02-28 09:31 | disposition home or self-care (01) ==
PROVIDERS: PCP Family Medicine; Visit Provider Orthopaedic Surgery
DX: E87.6 Hypokalemia (principal); M17.11 Unilateral primary osteoarthritis, right knee; I10 Essential (primary) hypertension
CPT/HCPCS: 36415; 82040; 82565; 82947; 85014; 85018; 93005

== ENCOUNTER 2024-04-20 09:50 | Outpatient (CLI) | payer MEDICARE, SELFPAY ==
[2024-04-20 11:56] LABS: Urine Cotinine NEGATIVE
[2024-04-20 12:34] LABS: Hemoglobin A1C 5.1 % (<5.7)
[2024-04-20 12:43] LABS: MRSA (PCR) NOT DETECTED (NOT DETECTE)
== END 2024-04-20 09:51 | disposition home or self-care (01) ==
LOC: ANHSURGERY 09:57
PROVIDERS: PCP Family Medicine; Visit Provider Orthopaedic Surgery
DX: Z01.812 Encounter for preprocedural laboratory examination (principal); M17.11 Unilateral primary osteoarthritis, right knee; I10 Essential (primary) hypertension; E78.5 Hyperlipidemia, unspecified
CPT/HCPCS: 80307; 83036; 87641

== ENCOUNTER 2024-05-12 01:38 | Day surgery (SDC) | payer MEDICARE, SELFPAY ==
[2024-04-20 10:02] VITALS: BMI 34.8
[2024-04-20 10:12] VITALS: BP 140/68; PULSE 64; RESP 16; TEMP 36.3; O2SAT 98
--- NOTE | 2024-04-20 10:36 | PC.NURSE ---
Report to the Outpatient Waiting Room, entrance under the green pavilion located off [facility], at time ___6:00AM____ on date ___05/12/24____. Planned Procedure Time: ___7:30AM .? Time changes happen often and if your time is changed the preop area will call you the afternoon before. - You and your visitor will be asked to self-screen and do not enter if you have any COVID symptoms. Please call surgeon if you need to reschedule. - A mask is optional within the hospital at this time. Patients may have clear liquids (water, carbonated beverages, clear teas, apple juice) until 3 hours prior to surgery with a maximum of 20 ounces. - No food from midnight until time of surgery and no smoking. This includes no chewing gum, candy or mints. Take only the following medications with a SIP of water on the morning of surgery: ____AMLODIPINE, METOPROLOL DO NOT STOP ANY OF YOUR OTHER PRESCRIPTION MEDICATIONS PRIOR TO SURGERY EXCEPT THE FOLLOWING Medications to discontinue per physician ____HOLD ASPIRIN & ALL VITAMINS/SUPPLEMENTS 7 DAYS PRE-OP PER DR BRISCOE- LAST DOSE 05/04/24. HOLD XERALTO 5 DAYS PRE-OP PER DR BRISCOE- LAST DOSE 05/06/24. Please no make-up, nail ukrainian, hairspray, perfume, deodorant, or body powder the day of surgery.? No jewelry (including any body piercings) or valuables the day of surgery, leave them at home.? Please take a shower or bath the night before, or the morning of, surgery with an antibacterial soap.? Wear comfortable, loose fitting clothing.? - Jewelry must be removed prior to entering the operating room.? Rings and piercings that are not removed may be cut off. - The hospital will not accept responsibility for valuables.? - Please leave all valuables, including medications, at home the day of surgery. If you are going home after surgery, a licensed xm1 tank driver must drive you home.? - NO public transportation without another adult if you receive anesthesia. - We recommend that an adult stay with you for 24 hours following discharge. - We also recommend that you do not drive, make important decision, drink alcoholic beverages, or take any drugs that were not prescribed by your health care provider for at least 24 hours after your discharge time. Follow any additional instructions given to you from your surgeon. Telephone instructions given to ____PATIENT & SIGNIFICANT OTHER and asked if any additional questions and then verbalized understanding. Patient advised to call surgeon office or pre surgery nurse liaison [phone] if any additional questions.
--- NOTE | 2024-05-11 16:03 | P.PNAN_ITS ---
Anes - Initial Pre Proc Eval Procedure: Operation Date: 05/12/24 07:30 Proposed Procedures p Right Total Knee Arthroplasty - Emilio Feng MD Date/Time: 05/11/24 16:03 Surgeon: Emilio Feng MD Pre Op Diagnosis: primary oa right knee Patient Data Age: 74 Gender: M Height: 1.72 m Weight: 103.1 kg Last Vital Signs Temp 36.3 C L 04/20/24 10:12 Pulse 64 04/20/24 10:12 Resp 16 04/20/24 10:12 BP 140/68 04/20/24 10:12 Pulse Ox 98 04/20/24 10:12 O2 Del Method Room Air 04/20/24 10:12 Allergies Allergy/AdvReac Type Severity Reaction Status Date / Time No Known Allergies Allergy Verified 05/12/24 06:26 Home Medications ?Medication ?Instructions ?Recorded ?Confirmed ?Type amlodipine 5 mg tablet 5 mg PO QAM 05/11/22 05/12/24 History losartan 100 mg tablet 100 mg PO HS 05/11/22 04/20/24 History metoprolol succinate 25 mg 25 mg PO QAM 30 days #30 tabs 05/14/22 05/12/24 Rx tablet,extended release 24 hr (Toprol XL) rosuvastatin 10 mg tablet (Crestor) 20 mg (2 x 10 mg) PO DAILY 30 days 05/14/22 04/20/24 Rx #60 tabs rivaroxaban 2.5 mg tablet (Xarelto) 2.5 mg PO BID 12/30/23 05/12/24 History acetaminophen 500 mg tablet 1,000 mg PO Q6H PRN Pain 04/20/24 04/20/24 History aspirin 81 mg tablet,delayed 81 mg PO DAILY 04/20/24 05/12/24 History release calcium carb-ergocalciferol (vit 1 tablet PO DAILY 04/20/24 05/12/24 History D2) 600 mg calcium-200 unit tablet multivitamin 1 tablet PO DAILY 04/20/24 05/12/24 History vit A 7,160 unit-vit C 113 mg-vit 1 tablet PO DAILY 04/20/24 05/12/24 History E 100 [id number] tablet Patient hx anesthesia problems: none Family hx anesthesia problems: none Results Review: All pre-operative results and documents have been reviewed as part of the pre- operative evaluation. [facility] Past Medical History Medical History (Updated 05/11/24 @ 16:04 by Wellington Ambrosio DO) PVD (peripheral vascular disease) Retinal detachment, right Blind right eye Coronary artery disease HLD (hyperlipidemia) HTN (hypertension) GERD (gastroesophageal reflux disease) Surgical History Surgical History History of tonsillectomy and adenoidectomy As a child History of bilateral inguinal hernia repair History of heart artery stent (04/2022) 99% stenosis between the 2nd and 3rd portions RCA and 70% stenosis in the circumflex posterior branch just after the origin of the obtuse marginal branch of the right coronary artery with a 26 mm Orsiro Family History Family History Father , at age 80 Pancreatic cancer, Onset Age: 65 COPD (chronic obstructive pulmonary disease) Mother Dementia COPD (chronic obstructive pulmonary disease) Sibling COPD (chronic obstructive pulmonary disease) Chronic kidney disease Social History Social History Social History: 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 He lives with his long-term girlfriend. He drinks 3-4 alcoholic beverages a day. He denies illicit substance use. Code status: Full code Smoking status: Never smoker Alcohol intake: current Drinks per week: 24 Alcohol use details: 3-4 alcoholic beverages a day Substance use: never Substance use type: does not use Do You Feel Safe in your Home?: Yes Lack of Transportation: No Lack of Food: Never True Current Housing: I Have Housing Concerned About Future Housing: No Difficulty Paying Gas/Electric Bills: No Difficulty Paying for Meds: No Currently Unemployed: No Education: Decline to Answer Difficulty w/ Childcare or Family Care: No Living arrangements: with family Additional living arrangements comments: partner Flores Gender identity (if verbalized by the patient): Male Sexual Orientation (if Verbalized by the Patient): Straight or Heterosexual Spiritual care concerns: No Anes - Eval Final PreProcedure Day of Procedure 05/11/24 16:03 Patient weight: obese Heart: regular rate and rhythm Lungs: clear to auscultation Airway: Mallampati scale class II Neurological: alert and oriented Last oral intake: >/= 8 hours ASA classification: III Emergent: no Anesthetic plan: proceed Anesthesia type and monitoring: general LMA and standard monitoring Results Review: All pre-operative results and documents have been reviewed as part of the pre- operative evaluation. Informed Consent: The patient's anesthetic plan and its attendant risks and benefits were discussed with the patient/family/POA. Questions were solicited and answers provided to the satisfaction of the patient/family/POA.
[2024-05-12] VITALS (14 sets, daily range): BP systolic 117–148; BP diastolic 64–87; PULSE 58–89; RESP 11–18; TEMP 36.2–37.2; O2SAT 94–98; BMI 34.2
--- NOTE | ~2024-05-12 | XR_ITS ---
EXAMINATION: [id number] DATE: 05/12/2024 10:38 INDICATION: Postoperative evaluation following right total knee arthroplasty. TECHNIQUE: Anteroposterior and lateral views of the right knee were obtained. COMPARISON: None. FINDINGS: Right total knee arthroplasty with patellar resurfacing appears well seated and in near anatomic alig nment. No fractures identified. Expected postoperative subcutaneous and intra-articular gas. IMPRESSION: 1. Right total knee arthroplasty, negative for postoperative purposes. Reviewed, dictated and finalized at location A. MECHANIC
[2024-05-12] MEDS: LACTATED RINGERS 1,000 ML 30 ML IV CONT ×2 (06:40→10:12)
[2024-05-12] MEDS: ACETAMINOPHEN 500 MG TABLET 1000 MG PO (07:04)
[2024-05-12] MEDS: TRANEXAMIC ACID 1,000MG/ISO100 1,000 MG/100 ML BAG 200 MG IVPB (07:05)
--- NOTE | 2024-05-12 07:13 | WPDHPUPDATE1 ---
History and Physical Update Update Date/Time: 05/12/24 07:13 History and Physical has been reviewed, including an updated exam of the patient. There are NO changes in the patient's condition. Risks, benefits, and alternatives have been discussed and questions answered. Patient agrees to proceed with procedure.
[2024-05-12] MEDS: ceFAZolin 2 GM/D5W 50 ML 2 GM/50 ML BAG IVPB ×3 (07:28→23:39)
[2024-05-12] MEDS: SODIUM CHLORIDE 0.9% IV 37.7 ML, MORPHINE SULFATE INJ (*CRX) 2 MG, ROPivacaine HCL 1% 2... INFILTRATE (08:03)
[2024-05-12] MEDS: TRANEXAMIC ACID 1,000 MG/10 ML AMPUL 1000 MG IV PUSH (09:57)
[2024-05-12] MEDS: fentaNYL CITRATE INJ (*CRX) 100 MCG/2 ML VIAL 25 MCG IV PUSH ×6 (10:22→10:53)
--- NOTE | 2024-05-12 10:51 | P.OP_ITS ---
Procedure Note - Detailed Date of Procedure 05/12/24 Pre-op Diagnosis Right knee degenerative arthritis. Post-op Diagnosis Same Procedure Performed Calipered, kinematically aligned total knee replacement right knee. Surgeon Emilio Feng MD Head Of Visual Merchandising Fátima Harper RN-AYALA Anesthesia General Findings According to the calipered kinematic alignment principles, the knee was balanced by the following verification checks incorporating 6 caliper measurements, using an insert goniometer to select the insert thickness, and adjusting the tibial resection following the kinematic alignment algorithm (see figure 160.10 published in [employer] [facility] chapter on kinematic alignment total knee art hroplasty.) The steps verified the femoral and tibial components were kinematically aligned coincident to the patient's pre arthritic joint lines, which closely restored the mohegan tibial compartment forces and ligament laxities without ligament release. The [employer] knee, designed specifically for kinematic alignment, fit optimally. Severe synovitis noted. Partial synovectomy performed. Marked medial bone erosion. No ligament releases performed. Final varus angulation of 7? matched preoperative pre arthritic anatomy. The record of verification checks were documented and scanned into the chart. Distal Femoral Resection: Distal Medial 6 mm(cartilage worn), Distal Lateral 6 mm(cartilage worn) Target thickness of 8mm Unworn, 6mm Worn (No Cartilage). Posterior Femoral Resection: Posterior Medial 5 mm(cartilage worn), Posterior Lateral 7 mm. Target thickness of 7mm Unworn, 5mm Worn (No Cartilage). Description of Procedure General anesthesia was administered. A well-padded tourniquet was placed high on the thigh. The limb was prepped and draped in the usual sterile fashion. The limb was exsanguinated and the tourniquet inflated to 300 mmHg. A longitudinal incision was created over the midline of the knee. Sharp dissection was taken through subcutaneous tissues. Electrocautery was used for hemostasis. A trivector approach to the knee joint was performed. The ACL, anterior horns of the menisci, and fat pad were excised, and a subperiosteal dissection was carried along the posterior medial border of the tibia. The thickness of the mohegan patella was measured with a caliper. The patella was resected using the oscillating saw. The best fitting anatomic patella button was selected. The fixation holes were drilled. When the patella and patella buttons combined thickness was thicker than the mohegan patella, the patella was recut. Starting midway between the top of the notch in the anterior femoral cortex, I drilled a 9 mm diameter hole parallel to the anterior cortex to minimize flexion of the femoral component and promote patella tracking. I verified the existence of a 5-10 mm bone bridge between the posterior aspect of the hole and the anterior limit of the intercondylar notch. An intraosseous positioning armando was inserted 10 cm into the femur perpendicular to the distal joint line and parall el to the anterior cortex. I used a distal femoral referencing guide that compensated 2 mm when the cartilage was worn on the distal medial femoral condyle, and 2 mm when the cartilage was worn on the distal lateral femoral condyle. The basis for setting the distal and posterior femoral resection guide is knowing that the varus and valgus grade II to IV Kellegren-Louie osteoarthritic knees have negligible bone wear at 0? and 90? and that the mean full-thickness cartilage wear approximates 2 mm. I measured the thickness of distal femoral resections with a caliper to +/- 0.5 mm. The thickness of each resection was adjusted to match the thickness of the respective condyle of the femoral component within 0.5 mm of target after compensating for cartilage wear and kerf. When the distal r esection was 1-2 mm too thin, a recut guide was used to adjust the cut. When the distal resection was too thick, a 1 or 2 mm thick washer was fixed to the back of the 4-in-1 chamfer block to rajinder a corrective gap between the femoral component and distal femur. I set posterior femoral referencing guide at 0? orientation to position the pin holes for the 4 in 1 chamfer block. The tessa wing measured the width of the distal femoral resection and selected the size of the 4 in 1 chamfer block and femoral component. The AP sizer confirmed the size. I measured the thickness of the posterior femoral resections with a caliper before making the anterior and chamfer cuts. I adjusted the thicknesses of each resection to match the thickness of the respective condyle of the femoral component within +/-0.5 mm after compensating for cartilage wear and curve. When a posterior resection femoral resection was 1-2 mm too thick or thin a corrective correction was made by shifting or rotating the 4 in 1 chamfer block as needed. The chamfer block was secured in the correct position with compression screws. The anterior and chamfer femoral resections were made. These caliper measurements and rob ections verified that the femoral component was set coincident with the patient's pre-arthritic distal and posterior femoral joint lines. I removed all the medial and lateral femoral and tibial osteophytes to restore the pre arthritic length of the medial and lateral collateral ligaments. I olu AP lines along the major axis of the lateral tibial plateau in between the tibial spines which identified the flexion extension plane of the knee. A conventional extramedullary tibial resection guide was applied to the ankle. An tessa wing was placed medially in the saw slot. The varus valgus angle of the tibial resection guide was adjusted until the guide paralleled the proximal tibial articular surface after compensating for cartilage and bone wear. The slope of flexion extension angle of the tibial resection guide was adjusted until the tessa wing paralleled the slope of the medial tibia after compensating for wear. The AP axis of the tibial resection guide was adjusted parallel to th e two lines. The proximal tibia was resected, partially releasing the insertion of the posterior cruciate ligament. The thickness of the medial and lateral lateral tibial condyle was measured at the base of the tibial spines. I visually verified the slope of the medial border of the resection was parallel to the patient's pre arthritic slope after compensating for cartilage and bone wear. I removed the remnants of the posterior horns of the menisci and posterior osteophytes and cauterized the inferior lateral genicular vessels. The Aquamantys bipolar device was also used to for additional hemostasis. When the knee had a preoperative flexion contracture of 20? or more I teased the capsule off the posterior femur with a curved 3 quarter-inch osteotome. I administered the posterior femoral periosteal injection by delivering 10 cc using a 20 gauge spinal needle at the most medial and 10 cc at the most lateral femoral spur surface which reduced the risk of injury to the posterior neurovascular structures. I followed 6 options in a decision tree to fine tune the varus valgus and posterior slope orientation of the tibial component to restore the patient's pre arthritic tibial joint line and limb alignment. First, I adjusted the varus- valgus orientation of the proximal tibia resection working in 1 degree to 2 degree increments until there was negligible medial and lateral lift off of the distal femoral and proximal tibial resection from the spacer block during a varus valgus laxity assessment in extension. I selected the largest anatomic shape trial tibial base plate that fit within the cortical boundary of the proximal tibial resection. The base plate was best fit parallel to the cortical boundary which set the Internal-external orientation of the anterior to posterior and medial to lateral positions. The best fit method set the AP axis of the tibial base plate and insert parallel to the flexion extension plane of the pre arthritic knee. I pinned the trial t ibial base plate, prepared the cruciate slot, and fixed the base plate to the tibia with the cruciate stem. I inserted the trial femoral component. The knee was placed in full extension. Varus valgus laxity is of the knee with trial components were assessed. When asymmetric laxity was observed a 1-2 degree varus or valgus recut guide was used to fine tune the tibial resection until the laxity was 1 degree or less in full extension like the mohegan knee. The following steps determined the optimal insert thickness within +/-1 mm. First I inserted an insert goniometer that matched the thickness of the spacer block. I reduced the patella and then with the knee in maximum extension, I verified the knee hyperextended a few degrees and had negligible varus valgus laxity, like the pre arthritic knee. He required a release of the posterior lateral capsule. Next, I measured the external tibial orientation which was the angle the insert goniometer intersected the sagittal line on the medial condyle of the femoral trial component. Then with the knee in 15-30 degrees flexion I verified a 3-4 mm gap in the lateral compartment and no gap in the medial compartment during a 2nd varus valgus laxity test. Next, I placed the knee in 90? of flexion and the foot resting on the operating table and measured the internal tibial orientation. I repeated the steps until I identified the insert thickness that provided the highest external tibia orientation in extension and the highest internal tibial orientation at 90? flexion without anterior lift-off of the insert from the tibial base plate. The insert with this thickness was implanted. I applied a posterior drawer test with the tibia distracted by gravity and verified no posterior subluxation of the tibia relative to the femur. The patella remained centered on the trochlea and tracked well throughout the entire arc of flexion and extension. I used pulse lavage to clean the bony surfaces of debris and dried bone. I cemented the tibial, femoral, and patellar components using 1 bag of methylmethacrylate with Gentamycin, then rechecked the stability at full extension, 15-30 degrees, and 90? flexion and verified buddhist of the entire arc of motion of the knee. The circulating nurse confirmed the sponge and needle counts were correct. I used pulse lavage to rinse the joint and wound. The extensor mechanism was closed with interrupted #1 Vicryl suture and #1 running Stratafix suture. The subcutaneous layer was closed with interrupted #1 Vicryl suture followed by 2-0 Stratafix and 3-0 Stratafix. Steri-Strips placed on the skin. Silver impregnated occlusive dressing applied to the wound. A light gauze wrap and Rickey bandage were placed. The patient was transferred to the recovery room in stable condition. There were no complications. Implants Medacta GMK spheriKA Femoral component SpheriKA size 4+, tibial component size 4, vitamin-E flex insert, thickness 12mm, Anatomic patella implant size 3. Estimated Blood Loss 50 Tourniquet Time Total Tourniquet Time: 93 Drains No Pathology None sent Complications No immediate complications Condition Stable Disposition PACU [facility] Billing Surgery - Charge Forward: Surgery Billing
--- NOTE | 2024-05-12 12:12 | ADMGEN ---
This patient, Blu Raines, was admitted to [facility] Surg Room 328-01. Patient/family oriented to hospital policies and general routines including ID bracelet, bed and alarms, visiting hours, pain management, procedures, bathroom and other care routines, personal items, smoking policy, room service/diet, and visiting hours. Information on how to activate the Rapid Response Team has been discussed. Patient/Family are encouraged to report perceived risks to care and to ask questions if they do not understand what they are told or what they should do.
[2024-05-12] MEDS: ACETAMINOPHEN 325 MG TABLET 650 MG PO ×2 (12:19→18:08)
[2024-05-12] MEDS: SODIUM CHLORIDE 0.9% IV 1,000 ML 125 ML IV CONT (12:19)
[2024-05-12] MEDS: oxyCODONE/ACETAMINOPHEN (*CRX) 5-325 MG TABLET 1 TABLET PO ×2 (13:47→20:19)
[2024-05-12] MEDS: SENNA/DOCUSATE SODIUM TABLET 2 TAB PO (16:17)
[2024-05-12] MEDS: predniSONE 5 MG TABLET PO (16:17)
[2024-05-12] MEDS: LOSARTAN POTASSIUM 100 MG TABLET PO (20:19)
[2024-05-12] MEDS: FAMOTIDINE 20 MG TABLET PO (20:19)
[2024-05-12] MEDS: CYCLOBENZAPRINE HCL 10 MG TABLET PO (23:39)
[2024-05-13] MEDS: ACETAMINOPHEN 325 MG TABLET 650 MG PO ×2 (00:06→06:42)
[2024-05-13] MEDS: oxyCODONE/ACETAMINOPHEN (*CRX) 5-325 MG TABLET 1 TABLET PO (02:03)
[2024-05-13 04:45] VITALS: BP 133/69; PULSE 56; RESP 16; TEMP 36.6; O2SAT 97
[2024-05-13] MEDS: ceFAZolin 2 GM/D5W 50 ML 2 GM/50 ML BAG IVPB (06:42)
[2024-05-13 07:14] LABS: Basophils Percent Auto 0.1 % (0.2-1.2); Hematocrit 37.6 % (42.0-52.0); Hemoglobin 12.3 g/dL (14.0-18.0); Immature Granulocyte Absolute 0.04 K/mm3 (0.00-0.031); Immature Granulocyte Percent A 0.5 % (0-0.5); Lymphocytes Percent Auto 10.2 % (18.3-44.2); Mean Corpuscular HGB Conc 32.7 g/dl (32-36); Mean Corpuscular Hemoglobin 34.1 pg (26-34); Mean Corpuscular Volume 104.2 fl (80-100); Mean Platelet Volume 9.1 fl (7.4-10.4); Monocytes Absolute Auto 1.3 K/mm3 (0.1-0.6); Monocytes Percent Auto 14.6 % (2.6-8.5); Neutrophils Absolute Auto 6.6 K/mm3 (1.3-6.7); Neutrophils Percent Auto 74.6 % (45.5-73.1); Platelet Count Result 122 k/mm3 (150-375); Red Blood Count 3.61 M/mm3 (4.6-6.20); Red Cell Distribution Width 12.5 % (11.5-14.5); White Blood Count 8.8 K/mm3 (4.5-10.0)
[2024-05-13 07:20] LABS: Anion Gap 1 mmol/L (4-12); Blood Urea Nitrogen 13 mg/dL (9-20); Calcium 8.8 mg/dL (8.4-10.2); Carbon Dioxide 30 mmol/L (22-30); Chloride 106 mmol/L (98-107); Estimated CRCL calculation 82 ml/min; Estimated Glomerular Filt Rate > 60; Glucose 122 mg/dL (65-110); Potassium 4.4 mmol/L (3.4-5.0); Sodium 137 mmol/L (137-145)
--- NOTE | 2024-05-13 07:43 | P.DS_ITS ---
DS: Admitting Diagnosis Discharge Date 05/13/24 Admitting Diagnosis knee arthritis DS: Discharge Diagnosis Discharge Diagnosis (1) Status post total right knee replacement: Code(s): Z96.651 - Presence of right artificial knee joint Status: Acute Assessment and Plan: Postop day 1: Right total knee arthroplasty. Patient tolerated procedure well. No complications. Pain manageable with pain medication. No numbness or tingling. We had a lengthy discussion regarding postoperative wound care, limitations, expectations, and exercises. Patient shows good understanding. He has had initial physical therapy and is tolerating it well. DVT prophylaxis: 81 ASA and Xarelto. Pain medication: Percocet. Prednisone. Patient has followup appointment with Dr. Feng in 3 weeks. DS: Summary Hospital Course Reason for hospitalization: Total knee arthroplasty Hospital Course: Patient tolerated procedure well. Has had initial PT/OT. Status at Discharge Functional status at discharge: uses cane/walker Overall status at discharge: patient is progressing back to baseline Time Spent with Patient Time attestation: Total time spent providing and/or coordinating discharge services: Exam Narrative: Obese 74 y/o Male. Resting comfortably in bed. Wearing compression socks bilaterally. Dressing intact with no drainage. Moderate swelling. No ecchymosis. No erythema. No hematoma. Range of motion limited due to pain. Calf nontender. Neurologic status intact. No varicosities. Distal pulses palpable. Quad fires. DS: Data Data Completed and Pending Labs on day of discharge: Labs from last 24 hours 05/13/24 05/12/24 06:33 06:43 WBC 8.8 RBC 3.61 L Hgb 12.3 L Hct 37.6 L MCV 104.2 H MCH 34.1 H MCHC 32.7 RDW 12.5 Plt Count 122 L MPV 9.1 Immature Gran % (Auto) 0.5 Neut % (Auto) 74.6 H Lymph % (Auto) 10.2 L [place] % (Auto) 14.6 H Eos % (Auto) 0.0 Baso % (Auto) 0.1 L Lymph # (Auto) 0.90 [place] # (Auto) 1.3 H Eos # (Auto) 0.0 Baso # (Auto) 0.0 Abs Immat Gran (auto) 0.04 H Absolute Neuts (auto) 6.6 Absolute Nucleated RBC 0.000 Nucleated RBC % 0.0 Sodium 137 Potassium 4.4 Chloride 106 Carbon Dioxide 30 Anion Gap 1 L BUN 13 Creatinine 0.80 Estim Creat Clear Calc 82 Estimated GFR > 60 Glucose 122 H Calcium 8.8 Antibody Screen Negative Discharge Plan Discharge Patient Disposition: Home, Self-Care Discharge Instructions: See green instruction sheets Patient Language: Turkish Stand Alone Forms: General Discharge Instructions Follow-up/Referrals: Sandra Ervin PA [Physician Class [employer]] - Discharge Medications: New prednisone 5 mg tablet 5 mg PO DAILY 21 Days Qty: 21 0RF oxycodone-acetaminophen 5-325 mg tablet 1 - 2 tablet PO Q4-6H MDD 6 PRN (Reason: pain) 7 Days Qty: 30 0RF Continued Xarelto 2.5 mg tablet 2.5 mg PO BID amlodipine 5 mg tablet 5 mg PO QAM losartan 100 mg tablet 100 mg PO HS metoprolol succinate [Toprol XL] 25 mg Tablet Extended Release 24 Hr 25 mg PO QAM 30 Days Qty: 30 3RF rosuvastatin [Crestor] 10 mg Tablet 20 mg PO DAILY 30 Days Qty: 60 3RF multivitamin Tablet 1 tablet PO DAILY aspirin 81 mg Tablet,Delayed Release (Dr/Ec) 81 mg PO DAILY calcium carbonate-vitamin D2 600 mg calcium- 200 unit Tablet 1 tablet PO DAILY vit A-vit C-vit [id number] Tablet 1 tablet PO DAILY acetaminophen 500 mg Tablet 1,000 mg PO Q6H PRN (Reason: Pain)
[2024-05-13 09:09] VITALS: BP 115/62; PULSE 57; RESP 18; TEMP 36.4; O2SAT 97
[2024-05-13] MEDS: oxyCODONE/ACETAMINOPHEN (*CRX) 10-325 MG TABLET 1 TAB PO (09:11)
[2024-05-13] MEDS: ROSUVASTATIN 10 MG TABLET 20 MG PO (09:12)
[2024-05-13 09:13] VITALS: PULSE 70
[2024-05-13] MEDS: RIVAROXABAN 2.5 MG TABLET PO (09:13)
[2024-05-13] MEDS: amLODIPine BESYLATE 5 MG TABLET PO (09:13)
[2024-05-13] MEDS: METOPROLOL SUCCINATE EXT REL 25 MG TABCR PO (09:13)
[2024-05-13] MEDS: FAMOTIDINE 20 MG TABLET PO (09:13)
[2024-05-13] MEDS: ASPIRIN 81 MG ENTERIC TABLET PO (09:13)
[2024-05-13] MEDS: SENNA/DOCUSATE SODIUM TABLET 2 TAB PO (09:13)
[2024-05-13] MEDS: OPTI-GEN TAB 1 TABLET PO (09:13)
[2024-05-13] MEDS: polyethylene glycoL 3350 17 GM POWD.PACK PO (09:13)
== END 2024-05-13 11:10 | disposition home or self-care (01) ==
LOC: ANHSURGERY 09:39 → ANH3MEDSUR 11:58
PROVIDERS: Physician Assistant Surgical; PCP Family Medicine; Visit Provider Orthopaedic Surgery
PROC: (CPT 27447; principal; 2024-05-12 07:30)
DX: M17.11 Unilateral primary osteoarthritis, right knee (principal); I10 Essential (primary) hypertension; E78.5 Hyperlipidemia, unspecified; E66.9 Obesity, unspecified; Z68.34 Body mass index [BMI] 34.0-34.9, adult
CPT/HCPCS: 27447; 36415; 73560; 80048; 80307; 83036; 85025; 86850; 86900; 86901; 87641; 97110; 97116; 97161; 97165; 97530; 97535; C1776; A9270; C1713; J0171; J0690; J1100; J1171; J1885; J2003; J2270; J2405; J2704; J2795; J3010; J7030; J7120; J7512